=== PATIENT | male | born 1950 | race Two or more races ===

== ENCOUNTER 2018-08-30 13:49 | Emergency (ER) | payer OTHER ==
[2018-08-30 13:49] VITALS: BP 0/0
== END 2018-08-30 18:49 | disposition expired ==
LOC: EDBD 13:49 → ER 13:52
DX: I46.9 Cardiac arrest, cause unspecified (principal); I10 Essential (primary) hypertension; E78.5 Hyperlipidemia, unspecified
CPT/HCPCS: 92950